=== PATIENT | female | born 1985 | race Hispanic/Latino ===

== ENCOUNTER 2021-03-08 01:05 | Inpatient (IN) | payer SELFPAY ==
[~2021-03-08] VITALS: Ht 154.9 cm; Wt 84.2 kg
[2021-03-08] VITALS (9 sets, daily range): BP systolic 72–134; BP diastolic 55–83
[2021-03-08 03:52] LABS: BASOPHILS % (AUTO) 0.3 % (0.0-5.0); LYMPHOCYTES % (AUTO) 16.7 % (21.0-51.0); MEAN CORPUSCULAR HEMOGLOBIN 57.1 pg (27.0-33.0); MEAN CORPUSCULAR HGB CONC 39.5 g/dL (32.0-36.0); MEAN CORPUSCULAR VOLUME 144.6 fL (79-99); MONOCYTES % (AUTO) 7.1 % (3.0-13.0); NEUTROPHILS % (AUTO) 70.8 % (40.0-77.0); NUCLEATED RED BLOOD CELLS 18.7 % (0.0-0.19); PLATELET COUNT (AUTO) 475 K/uL (130-400); RED BLOOD CELL COUNT(AUTO) 0.56 MIL/uL (4.00-5.50); RED CELL DISTRIBUTION WIDTH 30.9 % (11.0-15.5)
[2021-03-08 03:54] LABS: CREATININE 0.8 mg/dL (0.5-1.5); POTASSIUM 3.9 mmol/L (3.5-5.1)
[2021-03-08 03:55] LABS: HEMATOCRIT 8.1 % (36-48); WHITE BLOOD COUNT (AUTO) 34.4 K/uL (4.8-10.8)
[2021-03-08 03:57] LABS: INR 1.16 (0.85-1.15); PROTHROMBIN TIME 12.5 SEC (9.6-11.6)
[2021-03-08 03:59] LABS: BILIRUBIN,TOTAL 3.2 mg/dL (0.2-1.0); TOTAL PROTEIN, SERUM 8.8 g/dL (6.0-8.3)
[2021-03-08 04:22] LABS: BAND NEUTROPHILS % (MANUAL) 12 % (0-2); LYMPHOCYTES % (MANUAL) 13 % (22-44); MAN.DIFF COMMENT-IMPRESSION MANUAL DIFFERENTIAL; MONOCYTES % (MANUAL) 9 % (2-9); SEGMENTED NEUTROPHILS % 66 % (40-70)
[2021-03-08 04:26] LABS: B-TYPE NATRIURETIC PEPTIDE 179 pg/mL (0-100)
[2021-03-08] MEDS ORDERED: DEXAMETHASONE SOD PHOSPHATE 4 MG/ML 1ML VIAL IVP ONE (04:30)
[2021-03-08] MEDS ORDERED: ACETAMINOPHEN 325 MG TAB PO PRN ×2 (05:00)
[2021-03-08] MEDS ORDERED: ONDANSETRON 4MG INJ IV PRN (05:00)
[2021-03-08] MEDS ORDERED: DEXAMETHASONE SOD PHOSPHATE 4 MG/ML 5ML VIAL ONE (05:43)
[2021-03-08 06:01] LABS: CREATINE KINASE, TOTAL 15 U/L (21-232); MYOGLOBIN 29 ng/mL (10-92)
[2021-03-08 07:48] LABS: APPEARANCE,URINE Clear (CLEAR); BILIRUBIN,URINE Small (NEGATIVE); COLOR,URINE Dark Yellow (YELLOW); GLUCOSE, URINE (UA) Negative (NEGATIVE); KETONES,URINE Negative (NEGATIVE); LEUKOCYTE ESTERASE ,URINE Trace (NEGATIVE); NITRATE,URINE Negative (NEGATIVE); OCCULT BLOOD,URINE Large (NEGATIVE); PROTEIN,URINE Negative (NEGATIVE)
[2021-03-08 07:53] LABS: HCG,QUAL RESULT NEGATIVE (NEGATIVE)
[2021-03-08 08:09] LABS: BACTERIA,URINE Few /HPF (None Seen)
[2021-03-08] MEDS: FAMOTIDINE 20MG VIAL IV SCH ×2 (09:26→21:25)
[2021-03-09 03:23] VITALS: BP 106/49
[2021-03-09 05:18] LABS: MEAN CORPUSCULAR HEMOGLOBIN 54.7 pg (27.0-33.0); MEAN CORPUSCULAR HGB CONC 39.3 g/dL (32.0-36.0); MEAN CORPUSCULAR VOLUME 139.1 fL (79-99); NUCLEATED RED BLOOD CELLS 54.7 % (0.0-0.19); PLATELET COUNT (AUTO) 461 K/uL (130-400); RED BLOOD CELL COUNT(AUTO) 0.64 MIL/uL (4.00-5.50); RED CELL DISTRIBUTION WIDTH 30.7 % (11.0-15.5)
[2021-03-09 05:35] LABS: ALBUMIN 2.9 g/dL (3.5-5.0); BILIRUBIN,TOTAL 3.2 mg/dL (0.2-1.0); CREATININE 0.8 mg/dL (0.5-1.5); POTASSIUM 3.9 mmol/L (3.5-5.1); TOTAL PROTEIN, SERUM 8.3 g/dL (6.0-8.3)
[2021-03-09 05:39] LABS: WHITE BLOOD COUNT (AUTO) 43.2 K/uL (4.8-10.8)
[2021-03-09 05:40] LABS: HEMATOCRIT 8.9 % (36-48)
[2021-03-09 06:36] LABS: BAND NEUTROPHILS % (MANUAL) 2 % (0-2); LYMPHOCYTES % (MANUAL) 26 % (22-44); MONOCYTES % (MANUAL) 8 % (2-9); MYELOCYTES % 1 % (0-0); SEGMENTED NEUTROPHILS % 63 % (40-70)
[2021-03-09 06:37] LABS: MAN.DIFF COMMENT-IMPRESSION MANUAL DIFFERENTIAL; PLATELET MORPHOLOGY COMMENT SLIGHT INCREASED
[2021-03-09 07:51] VITALS: BP 111/65
[2021-03-09] MEDS: FAMOTIDINE 20MG VIAL IV SCH (09:00)
[2021-03-09 11:58] VITALS: BP 108/62
[2021-03-09] MEDS ORDERED: DEXAMETHASONE SOD PHOSPHATE 4 MG/ML 1ML VIAL IVP SCH (12:00)
[2021-03-09] MEDS ORDERED: COMPOUND IV MISC 1 EACH IVSOLN MISC PRN (12:30)
[2021-03-09] MEDS ORDERED: DEXAMETHASONE 10MG/ML 1ML VIAL 40 MG in 0.9%NACL 50ML 50 ML IV SCH (12:30)
[2021-03-09 16:00] VITALS: BP 120/57
== END 2021-03-09 17:20 | disposition short-term general hospital (02) | DRG 810 ==
LOC: EDH 01:05 → EDHIP 01:06 → 4CH 21:26
PROVIDERS: ADMIT Internal Medicine; ATTEND Internal Medicine
DX: D59.11 Warm autoimmune hemolytic anemia (principal); F12.90 Cannabis use, unspecified, uncomplicated; F17.210 Nicotine dependence, cigarettes, uncomplicated; D72.829 Elevated white blood cell count, unspecified; Z20.822 Contact with and (suspected) exposure to COVID-19; Z90.81 Acquired absence of spleen
CPT/HCPCS: 36415; 71045; 80053; 81001; 81025; 82550; 83874; 83880; 84484; 85025; 85027; 85610; 86850; 86860; 86870; 86880; 86900; 86901; 86902; 86905; 86906; 86971; 86978; 87040; 87088; 87635; 93005; G0378; J1100; J3490

== ENCOUNTER 2021-04-14 15:49 | Inpatient (IN) | payer OTHER ==
[~2021-04-14] VITALS: Ht 154.9 cm; Wt 81.6 kg
[2021-04-14] MEDS ORDERED: 0.9%NACL 1000ML 1,000 ML IV STA (16:20)
[2021-04-14] MEDS ORDERED: ACETAMINOPHEN 500 MG TABLET PO ONE (16:30)
[2021-04-14 16:46] LABS: BASOPHILS % (AUTO) 0.3 % (0.0-5.0); EOSINOPHILS % (AUTO) 0.2 % (0.0-8.0); HEMATOCRIT 23.4 % (36-48); LYMPHOCYTES % (AUTO) 5.9 % (21.0-51.0); MEAN CORPUSCULAR HEMOGLOBIN 31.8 pg (27.0-33.0); MEAN CORPUSCULAR HGB CONC 28.6 g/dL (32.0-36.0); MEAN CORPUSCULAR VOLUME 110.9 fL (79-99); MONOCYTES % (AUTO) 4.5 % (3.0-13.0); NEUTROPHILS % (AUTO) 86.3 % (40.0-77.0); NUCLEATED RED BLOOD CELLS 4.4 % (0.0-0.19); PLATELET COUNT (AUTO) 531 K/uL (130-400); RED BLOOD CELL COUNT(AUTO) 2.11 MIL/uL (4.00-5.50); RED CELL DISTRIBUTION WIDTH 17.2 % (11.0-15.5); WHITE BLOOD COUNT (AUTO) 29.1 K/uL (4.8-10.8)
[2021-04-14 17:02] LABS: CREATININE 0.8 mg/dL (0.5-1.5); POTASSIUM 3.7 mmol/L (3.5-5.1)
[2021-04-14 17:06] LABS: ALBUMIN 2.8 g/dL (3.5-5.0); BILIRUBIN,TOTAL 1.2 mg/dL (0.2-1.0); TOTAL PROTEIN, SERUM 7.9 g/dL (6.0-8.3)
[2021-04-14 17:45] LABS: PROTHROMBIN TIME 10.9 SEC (9.6-11.6)
[2021-04-14 18:12] LABS: APPEARANCE,URINE Cloudy (CLEAR); BILIRUBIN,URINE Negative (NEGATIVE); COLOR,URINE Yellow (YELLOW); GLUCOSE, URINE (UA) Negative (NEGATIVE); KETONES,URINE Negative (NEGATIVE); LEUKOCYTE ESTERASE ,URINE Trace (NEGATIVE); NITRATE,URINE Negative (NEGATIVE); OCCULT BLOOD,URINE Negative (NEGATIVE); PH,URINE 5.5 (5.0-8.0); PROTEIN,URINE Negative (NEGATIVE)
[2021-04-14 18:44] LABS: BACTERIA,URINE Few /HPF (None Seen); MUCUS,URINE Rare LPF (None Seen); RBC,URINE 0-1 /HPF (0-1); SQUAMOUS EPITHELIAL CELL,UR Moderate /HPF (0-2)
[2021-04-14 18:46] LABS: YEAST,URINE BUDDING Rare /HPF (None Seen)
[2021-04-14] MEDS ORDERED: DEXAMETHASONE SOD PHOSPHATE 4 MG/ML 1ML VIAL IVP SCH (19:00)
[2021-04-14] MEDS ORDERED: [UNRECOGNIZED DRUG - OTHER] IV ONE (19:30)
[2021-04-14] MEDS ORDERED: ACETAMINOPHEN 325 MG TAB PO PRN (19:30)
[2021-04-14] MEDS ORDERED: DEXAMETHASONE IV ONE (19:30)
[2021-04-14] MEDS ORDERED: DEXAMETHASONE SOD PHOSPHATE 10MG/ML 1ML VIAL ONE (20:46)
[2021-04-14] MEDS ORDERED: 0.9%NACL 50ML 50 ML IV ONE (20:47)
[2021-04-14] MEDS: FAMOTIDINE 20MG TAB PO SCH (21:03)
[2021-04-14] MEDS: ENOXAPARIN SODIUM 100 MG/1 ML SQ SCH (21:04)
[2021-04-14] MEDS ORDERED: FOLIC ACID PO (22:17)
[2021-04-14] MEDS ORDERED: PRED10TA23 PO (22:17)
[2021-04-15 03:05] VITALS: BP 104/64
[2021-04-15 05:16] LABS: BASOPHILS % (AUTO) 0.1 % (0.0-5.0); LYMPHOCYTES % (AUTO) 7.6 % (21.0-51.0); MEAN CORPUSCULAR VOLUME 114.4 fL (79-99); MONOCYTES % (AUTO) 2.2 % (3.0-13.0); NEUTROPHILS % (AUTO) 88.3 % (40.0-77.0); PLATELET COUNT (AUTO) 519 K/uL (130-400); RED BLOOD CELL COUNT(AUTO) 1.81 MIL/uL (4.00-5.50); RED CELL DISTRIBUTION WIDTH 17.2 % (11.0-15.5)
[2021-04-15 05:19] LABS: HEMATOCRIT 20.7 % (36-48)
[2021-04-15 05:35] LABS: CREATININE 0.7 mg/dL (0.5-1.5); MAGNESIUM 2.4 mg/dL (1.80-2.40); PHOSPHORUS 3.5 mg/dL (2.5-4.9); POTASSIUM 3.8 mmol/L (3.5-5.1)
[2021-04-15 07:30] VITALS: BP 110/54
[2021-04-15] MEDS: FAMOTIDINE 20MG TAB PO SCH ×2 (10:16→20:07)
[2021-04-15] MEDS: ENOXAPARIN SODIUM 100 MG/1 ML SQ SCH ×2 (10:16→20:09)
[2021-04-15 11:00] VITALS: BP 140/82
[2021-04-15] MEDS ORDERED: DEXAMETHASONE 10MG/ML 1ML VIAL 40 MG in 0.9%NACL 50ML 50 ML IV SCH ×4 (11:00)
[2021-04-15 16:00] VITALS: BP 119/51
[2021-04-15 20:40] VITALS: BP 114/59
[2021-04-15 23:55] VITALS: BP 118/63
[2021-04-16 03:57] VITALS: BP 97/57
[2021-04-16 07:30] VITALS: BP 100/60
[2021-04-16 08:55] LABS: HEMATOCRIT 22.1 % (36-48); MEAN CORPUSCULAR HGB CONC 27.6 g/dL (32.0-36.0); MEAN CORPUSCULAR VOLUME 112.2 fL (79-99); NUCLEATED RED BLOOD CELLS 2.8 % (0.0-0.19); PLATELET COUNT (AUTO) 595 K/uL (130-400); RED BLOOD CELL COUNT(AUTO) 1.97 MIL/uL (4.00-5.50)
[2021-04-16] MEDS ORDERED: DEXAMETHASONE 10MG/ML 1ML VIAL 40 MG in 0.9%NACL 50ML 50 ML IV SCH (09:00)
[2021-04-16 09:09] LABS: WHITE BLOOD COUNT (AUTO) 36.4 K/uL (4.8-10.8)
[2021-04-16 09:20] LABS: ALBUMIN 2.6 g/dL (3.5-5.0); BILIRUBIN,TOTAL 0.5 mg/dL (0.2-1.0); CREATININE 0.8 mg/dL (0.5-1.5); POTASSIUM 3.6 mmol/L (3.5-5.1); TOTAL PROTEIN, SERUM 7.5 g/dL (6.0-8.3)
[2021-04-16 09:27] LABS: LYMPHOCYTES % (MANUAL) 7 % (22-44); MAN.DIFF COMMENT-IMPRESSION MANUAL DIFFERENTIAL; MONOCYTES % (MANUAL) 3 % (2-9); PLATELET MORPHOLOGY COMMENT MARKED INCREASE; SEGMENTED NEUTROPHILS % 90 % (40-70)
[2021-04-16] MEDS: FAMOTIDINE 20MG TAB PO SCH ×2 (09:49→20:57)
[2021-04-16] MEDS: ENOXAPARIN SODIUM 100 MG/1 ML SQ SCH ×2 (09:50→20:57)
[2021-04-16 11:00] VITALS: BP 100/59
[2021-04-16 16:00] VITALS: BP 117/45
[2021-04-16 23:10] VITALS: BP 104/47
[2021-04-17 03:27] VITALS: BP 114/61
[2021-04-17 03:50] LABS: HEMATOCRIT 22.8 % (36-48); MEAN CORPUSCULAR HEMOGLOBIN 31.7 pg (27.0-33.0); MEAN CORPUSCULAR HGB CONC 28.1 g/dL (32.0-36.0); MEAN CORPUSCULAR VOLUME 112.9 fL (79-99); NUCLEATED RED BLOOD CELLS 4.1 % (0.0-0.19); RED BLOOD CELL COUNT(AUTO) 2.02 MIL/uL (4.00-5.50); RED CELL DISTRIBUTION WIDTH 17.7 % (11.0-15.5)
[2021-04-17 03:56] LABS: WHITE BLOOD COUNT (AUTO) 38.5 K/uL (4.8-10.8)
[2021-04-17 04:07] LABS: ALBUMIN 2.6 g/dL (3.5-5.0); BILIRUBIN,TOTAL 0.5 mg/dL (0.2-1.0); CREATININE 0.7 mg/dL (0.5-1.5); POTASSIUM 3.9 mmol/L (3.5-5.1); TOTAL PROTEIN, SERUM 7.5 g/dL (6.0-8.3)
[2021-04-17 07:30] VITALS: BP 101/62
[2021-04-17 08:55] LABS: % IRON SATURATION 50.9 % (22-44)
[2021-04-17] MEDS ORDERED: [UNRECOGNIZED DRUG - OTHER] PO SCH (09:00)
[2021-04-17] MEDS: ENOXAPARIN SODIUM 100 MG/1 ML SQ SCH (09:00)
[2021-04-17] MEDS: DEXAMETHASONE 10MG/ML 1ML VIAL 40 MG in 0.9%NACL 50ML 50 ML IV SCH (09:29)
[2021-04-17] MEDS: FAMOTIDINE 20MG TAB PO SCH ×2 (09:30→20:22)
[2021-04-17] MEDS: [UNRECOGNIZED DRUG - OTHER] PO SCH ×2 (09:45→20:23)
[2021-04-17 11:00] VITALS: BP 124/70
[2021-04-17 16:00] VITALS: BP 106/55
[2021-04-17 20:25] VITALS: BP 131/58
[2021-04-17 23:17] VITALS: BP 115/72
[2021-04-18 03:46] LABS: HEMATOCRIT 24.9 % (36-48); MEAN CORPUSCULAR HEMOGLOBIN 31.5 pg (27.0-33.0); MEAN CORPUSCULAR HGB CONC 28.1 g/dL (32.0-36.0); MEAN CORPUSCULAR VOLUME 112.2 fL (79-99); NUCLEATED RED BLOOD CELLS 6.3 % (0.0-0.19); PLATELET COUNT (AUTO) 530 K/uL (130-400); RED BLOOD CELL COUNT(AUTO) 2.22 MIL/uL (4.00-5.50); RED CELL DISTRIBUTION WIDTH 18.7 % (11.0-15.5)
[2021-04-18 03:47] VITALS: BP 103/47
[2021-04-18 03:48] LABS: WHITE BLOOD COUNT (AUTO) 31.3 K/uL (4.8-10.8)
[2021-04-18 03:56] LABS: CREATININE 0.6 mg/dL (0.5-1.5); POTASSIUM 4.1 mmol/L (3.5-5.1)
[2021-04-18 04:09] LABS: LYMPHOCYTES % (MANUAL) 12 % (22-44); MONOCYTES % (MANUAL) 4 % (2-9); REACTIVE LYMPHOCYTES 1 % (0-0); SEGMENTED NEUTROPHILS % 83 % (40-70)
[2021-04-18 04:10] LABS: MAN.DIFF COMMENT-IMPRESSION MANUAL DIFFERENTIAL
[2021-04-18 04:11] LABS: PLATELET MORPHOLOGY COMMENT INCREASED
[2021-04-18 07:39] VITALS: BP 108/65
[2021-04-18 08:07] LABS: HEMATOCRIT 26.3 % (36-48)
[2021-04-18] MEDS: FAMOTIDINE 20MG TAB PO SCH (08:59)
[2021-04-18] MEDS: [UNRECOGNIZED DRUG - OTHER] PO SCH (08:59)
[2021-04-18] MEDS ORDERED: PRED10TA3 PO (09:21)
[2021-04-18] MEDS: DEXAMETHASONE 10MG/ML 1ML VIAL 40 MG in 0.9%NACL 50ML 50 ML IV SCH (09:27)
== END 2021-04-18 12:40 | disposition home or self-care (01) | DRG 809 ==
LOC: EDH 15:49 → EDHIP 15:50 → 4AH 04-15 03:00
PROVIDERS: ADMIT Internal Medicine; ATTEND Internal Medicine
DX: D59.10 Autoimmune hemolytic anemia, unspecified (principal); E44.0 Moderate protein-calorie malnutrition; I82.431 Acute embolism and thrombosis of right popliteal vein; I82.411 Acute embolism and thrombosis of right femoral vein; Z20.822 Contact with and (suspected) exposure to COVID-19; F12.90 Cannabis use, unspecified, uncomplicated; D72.829 Elevated white blood cell count, unspecified; T38.0X5A Adverse effect of glucocorticoids and synthetic analogues, initial encounter; Z68.34 Body mass index [BMI] 34.0-34.9, adult; Y92.89 Other specified places as the place of occurrence of the external cause; Z79.01 Long term (current) use of anticoagulants; Z87.891 Personal history of nicotine dependence; Z90.81 Acquired absence of spleen
CPT/HCPCS: 36415; 80048; 80053; 81001; 82607; 82746; 83540; 83550; 83735; 84100; 85014; 85018; 85025; 85027; 85378; 85610; 86850; 86870; 86880; 86900; 86901; 86971; 86978; 87635; 93005; 93970; G0378; J1100; J1650

== ENCOUNTER 2022-09-28 11:35 | Inpatient (IN) | payer OTHER ==
[~2022-09-28] VITALS: Ht 154.9 cm; Wt 76.7 kg
[~2022-09-28 11:35] MED LIST: FOLIC ACID PO; PRED10TA3 PO
[2022-09-28 12:15] LABS: BASOPHILS % (AUTO) 0.3 % (0.0-5.0); EOSINOPHILS % (AUTO) 0.6 % (0.0-8.0); HEMATOCRIT 33.8 % (36-48); LYMPHOCYTES % (AUTO) 19.6 % (21.0-51.0); MEAN CORPUSCULAR HEMOGLOBIN 27.6 pg (27.0-33.0); MEAN CORPUSCULAR VOLUME 86.4 fL (79-99); PLATELET COUNT (AUTO) 327 K/uL (130-400); RED BLOOD CELL COUNT(AUTO) 3.91 MIL/uL (4.00-5.50); RED CELL DISTRIBUTION WIDTH 15.7 % (11.0-15.5); WHITE BLOOD COUNT (AUTO) 11.1 K/uL (4.8-10.8)
[2022-09-28 12:19] LABS: APPEARANCE,URINE CLEAR (CLEAR); BILIRUBIN,URINE NEGATIVE (NEGATIVE); COLOR,URINE LIGHT-YELLOW (YELLOW); GLUCOSE, URINE (UA) NEGATIVE (NEGATIVE); KETONES,URINE NEGATIVE (NEGATIVE); LEUKOCYTE ESTERASE ,URINE NEGATIVE Leu/uL (NEGATIVE); NITRATE,URINE NEGATIVE (NEGATIVE); OCCULT BLOOD,URINE LARGE (NEGATIVE); PH,URINE 6.5 (5.0-8.0); PROTEIN,URINE 600 mg/dL (NEGATIVE); UROBILINOGEN,URINE 0.2 mg/dL (0.2-1.0)
[2022-09-28 12:21] LABS: HCG,QUALITATIVE URINE NEGATIVE (NEGATIVE)
[2022-09-28 12:24] LABS: AMPHET/METH SCREEN,URINE NEGATIVE (NEGATIVE); BARBITURATE SCREEN, URINE NEGATIVE (NEGATIVE); BENZODIAZEPINES SCREEN,URINE NEGATIVE (NEGATIVE); CANNABINOID SCREEN,URINE NEGATIVE (NEGATIVE); COCAINE SCREEN,URINE NEGATIVE (NEGATIVE); OPIATE SCREEN,URINE NEGATIVE (NEGATIVE); PHENCYCLIDINE SCREEN,URINE NEGATIVE (NEGATIVE)
[2022-09-28 12:25] LABS: CREATININE 1.1 mg/dL (0.5-1.5); POTASSIUM 3.9 mmol/L (3.5-5.1)
[2022-09-28] MEDS ORDERED: LOSA50TA64 PO (12:27)
[2022-09-28] MEDS ORDERED: METO-391 PO (12:27)
[2022-09-28] MEDS ORDERED: HYDR200T4 PO (12:27)
[2022-09-28] MEDS ORDERED: AMLO5TAB5 PO (12:27)
[2022-09-28 12:29] LABS: ALBUMIN 2.1 g/dL (3.5-5.0); TOTAL PROTEIN, SERUM 6.8 g/dL (6.0-8.3)
[2022-09-28 12:32] LABS: RBC,URINE 26-50 /HPF (0-1); WBC,URINE 26-50 /HPF (0-1)
[2022-09-28 12:34] LABS: BACTERIA,URINE Few /HPF (None Seen); SQUAMOUS EPITHELIAL CELL,UR Rare /HPF (0-2)
[2022-09-28 12:35] LABS: MUCUS,URINE Rare LPF (None Seen)
[2022-09-28] MEDS ORDERED: 0.9% NACL 500ML IV.SOLN 500 ML IV ONE (13:00)
[2022-09-28] MEDS ORDERED: SOLU-MEDROL 125MG VIAL IVP ONE (13:00)
[2022-09-28] MEDS ORDERED: HYDRALAZINE 20MG/ML VIAL IV ONE (13:00)
[2022-09-28] MEDS ORDERED: HYDROMORPHONE 0.5 MG SYG (0.5MG/0.5ML) IVP PRN ×2 (15:00)
[2022-09-28] MEDS ORDERED: CLOPIDOGREL 75MG TAB PO ONE (15:00)
[2022-09-28] MEDS ORDERED: ASPIRIN 325MG TAB PO ONE (15:00)
[2022-09-28] MEDS ORDERED: HYDRALAZINE 20MG/ML VIAL IV PRN (15:00)
[2022-09-28] MEDS ORDERED: ACETAMINOPHEN 325 MG TAB PO PRN (15:00)
[2022-09-28] MEDS: METOPROLOL TARTRATE 25 MG TAB PO SCH ×2 (16:00→21:27)
[2022-09-28] MEDS: NIFEDIPINE 10 MG CAP PO SCH ×2 (16:01→21:27)
[2022-09-28] MEDS: NITROGLYCERIN 1GM OINT 1 INCH/1GM TD SCH (16:04)
[2022-09-28 16:30] VITALS: BP 164/91
[2022-09-28 19:46] VITALS: BP 146/86
[2022-09-28] MEDS ORDERED: METOPROLOL TARTRATE 25 MG TAB PO SCH (21:00)
[2022-09-28] MEDS: LOSARTAN 50 MG TABLET PO SCH (21:27)
[2022-09-28] MEDS: FAMOTIDINE 20MG TAB PO SCH (21:27)
[2022-09-28 23:48] VITALS: BP 141/83
[2022-09-29] MEDS: NITROGLYCERIN 1GM OINT 1 INCH/1GM TD SCH ×4 (00:37→23:44)
[2022-09-29 04:04] VITALS: BP 142/80
[2022-09-29 04:53] LABS: RETICULOCYTE % (AUTO) 1.36 % (0.42-2.23)
[2022-09-29 05:37] LABS: % IRON SATURATION 32.5 % (22-44)
[2022-09-29 05:49] LABS: CREATINE KINASE, TOTAL 13 U/L (21-232); FERRITIN 702 ng/mL (15-150); MYOGLOBIN 46 ng/mL (10-92)
[2022-09-29 08:00] VITALS: BP 130/81
[2022-09-29] MEDS: NIFEDIPINE 10 MG CAP PO SCH ×3 (08:36→19:59)
[2022-09-29] MEDS: CLOPIDOGREL 75MG TAB PO SCH (08:36)
[2022-09-29] MEDS: FAMOTIDINE 20MG TAB PO SCH ×2 (08:36→19:59)
[2022-09-29] MEDS: ENOXAPARIN SODIUM 40 MG/0.4 ML SYRINGE SQ SCH (08:36)
[2022-09-29] MEDS: LOSARTAN 50 MG TABLET PO SCH ×2 (08:36→19:59)
[2022-09-29] MEDS: ASPIRIN 81MG CHEW TAB PO SCH (08:36)
[2022-09-29] MEDS: METOPROLOL TARTRATE 25 MG TAB PO SCH ×3 (08:37→19:59)
[2022-09-29 12:09] VITALS: BP 139/76
[2022-09-29 16:32] VITALS: BP 125/84
[2022-09-29 20:02] VITALS: BP 143/71
[2022-09-29 23:31] VITALS: BP 141/81
[2022-09-30 03:54] VITALS: BP 138/84
[2022-09-30] MEDS: NITROGLYCERIN 1GM OINT 1 INCH/1GM TD SCH ×3 (07:08→16:40)
[2022-09-30 07:59] VITALS: BP 151/88
[2022-09-30] MEDS ORDERED: IRON SUCROSE COMPLEX 500 MG in 0.9%NACL 50ML 50 ML IV SCH (08:00)
[2022-09-30] MEDS ORDERED: EPOETIN ALFA-EPBX (NON-ESRD) 10,000 UNIT/ML VIAL SQ SCH (08:00)
[2022-09-30] MEDS ORDERED: CEFTRIAXONE 2GM VIAL IVPB ONE (08:00)
[2022-09-30 08:31] LABS: BASOPHILS % (AUTO) 0.2 % (0.0-5.0); HEMATOCRIT 28.8 % (36-48); MEAN CORPUSCULAR HGB CONC 31.9 g/dL (32.0-36.0); MEAN CORPUSCULAR VOLUME 87.8 fL (79-99); MONOCYTES % (AUTO) 6.2 % (3.0-13.0); NEUTROPHILS % (AUTO) 60.3 % (40.0-77.0); PLATELET COUNT (AUTO) 460 K/uL (130-400); RED BLOOD CELL COUNT(AUTO) 3.28 MIL/uL (4.00-5.50); RED CELL DISTRIBUTION WIDTH 16.4 % (11.0-15.5); WHITE BLOOD COUNT (AUTO) 14.2 K/uL (4.8-10.8)
[2022-09-30] MEDS: FAMOTIDINE 20MG TAB PO SCH ×2 (08:32→21:19)
[2022-09-30] MEDS: CLOPIDOGREL 75MG TAB PO SCH (08:32)
[2022-09-30] MEDS: ASPIRIN 81MG CHEW TAB PO SCH (08:32)
[2022-09-30] MEDS: NIFEDIPINE ER 30 MG TAB PO SCH (08:33)
[2022-09-30] MEDS: HYDROXYCHLOROQUINE SULFATE 200 MG TAB PO SCH ×2 (08:33→21:21)
[2022-09-30] MEDS: LOSARTAN 50 MG TABLET PO SCH ×2 (08:33→21:20)
[2022-09-30] MEDS: ENOXAPARIN SODIUM 40 MG/0.4 ML SYRINGE SQ SCH (08:34)
[2022-09-30 08:40] LABS: CARBON DIOXIDE 23 mmol/L (21-32); CHLORIDE 111 mmol/L (101-111); CREATININE 0.9 mg/dL (0.5-1.5); GLOMERULAR FILTR. RATE CALC 86 mL/min (>90); GLUCOSE,RANDOM 78 mg/dL (70-105); POTASSIUM 3.6 mmol/L (3.5-5.1); SODIUM SERUM 139 mmol/L (136-145); UREA NITROGEN, BLOOD 33 mg/dL (7-18)
[2022-09-30 09:00] LABS: MYOGLOBIN 32 ng/mL (10-92)
[2022-09-30] MEDS ORDERED: METOPROLOL TARTRATE 50 MG TAB PO SCH (09:00)
[2022-09-30 09:15] LABS: CREATINE KINASE, TOTAL < 7 U/L (21-232)
[2022-09-30 11:20] VITALS: BP 147/107
[2022-09-30 16:00] VITALS: BP 159/104
[2022-09-30] MEDS ORDERED: ISOSORBIDE MONO 30MG SR TAB PO SCH (18:00)
[2022-09-30] MEDS: HYDRALAZINE HCL 10 MG TABLET PO SCH ×2 (18:34→21:20)
[2022-09-30 18:58] LABS: APPEARANCE,URINE CLOUDY (CLEAR); BILIRUBIN,URINE NEGATIVE (NEGATIVE); COLOR,URINE LIGHT-YELLOW (YELLOW); GLUCOSE, URINE (UA) NEGATIVE (NEGATIVE); KETONES,URINE NEGATIVE (NEGATIVE); LEUKOCYTE ESTERASE ,URINE 75 Leu/uL (NEGATIVE); NITRATE,URINE NEGATIVE (NEGATIVE); OCCULT BLOOD,URINE LARGE (NEGATIVE); PH,URINE 6.5 (5.0-8.0); PROTEIN,URINE 300 mg/dL (NEGATIVE); UROBILINOGEN,URINE 0.2 mg/dL (0.2-1.0)
[2022-09-30 19:04] LABS: BACTERIA,URINE FEW /HPF (None Seen); MUCUS,URINE RARE LPF (None Seen); OTHER CASTS, URINE 1 /LPF (None Seen); RBC,URINE 51-100 /HPF (0-1); SQUAMOUS EPITHELIAL CELL,UR FEW /HPF (0-2); WBC,URINE 26-50 /HPF (0-1); YEAST,URINE BUDDING RARE /HPF (None Seen)
[2022-09-30 20:11] VITALS: BP 159/79
[2022-09-30] MEDS: METOPROLOL TARTRATE 25 MG TAB PO SCH (21:20)
[2022-09-30 22:04] LABS: PROTEIN,URINE RANDOM 694.9 mg/dL (0-11.9)
[2022-10-01 00:15] VITALS: BP 121/69
[2022-10-01] MEDS: NITROGLYCERIN 1GM OINT 1 INCH/1GM TD SCH ×3 (01:14→16:08)
[2022-10-01 04:20] LABS: BASOPHILS % (AUTO) 0.4 % (0.0-5.0); EOSINOPHILS % (AUTO) 1.1 % (0.0-8.0); HEMATOCRIT 27.2 % (36-48); LYMPHOCYTES % (AUTO) 22.5 % (21.0-51.0); MEAN CORPUSCULAR HEMOGLOBIN 28.1 pg (27.0-33.0); MEAN CORPUSCULAR HGB CONC 31.3 g/dL (32.0-36.0); MEAN CORPUSCULAR VOLUME 90.1 fL (79-99); NEUTROPHILS % (AUTO) 67.5 % (40.0-77.0); NUCLEATED RED BLOOD CELLS 0.4 % (0.0-0.19); PLATELET COUNT (AUTO) 432 K/uL (130-400); RED BLOOD CELL COUNT(AUTO) 3.02 MIL/uL (4.00-5.50); RED CELL DISTRIBUTION WIDTH 16.7 % (11.0-15.5); WHITE BLOOD COUNT (AUTO) 14.1 K/uL (4.8-10.8)
[2022-10-01 04:44] LABS: ALBUMIN 1.5 g/dL (3.5-5.0); CREATININE 0.9 mg/dL (0.5-1.5); MAGNESIUM 1.5 mg/dL (1.80-2.40); PHOSPHORUS 4.8 mg/dL (2.5-4.9); TOTAL PROTEIN, SERUM 5.1 g/dL (6.0-8.3)
[2022-10-01 05:02] VITALS: BP 143/86
[2022-10-01 05:54] LABS: ERYTHROCYTE SEDIMENTATION RATE 105 MM/HR (0-20)
[2022-10-01 07:06] VITALS: BP 146/81
[2022-10-01] MEDS: HYDROXYCHLOROQUINE SULFATE 200 MG TAB PO SCH ×2 (08:33→21:54)
[2022-10-01] MEDS: FAMOTIDINE 20MG TAB PO SCH ×2 (08:33→21:54)
[2022-10-01] MEDS: HYDRALAZINE HCL 10 MG TABLET PO SCH ×3 (08:34→21:54)
[2022-10-01] MEDS: NIFEDIPINE ER 30 MG TAB PO SCH (08:34)
[2022-10-01] MEDS: ASPIRIN 81MG CHEW TAB PO SCH (08:34)
[2022-10-01] MEDS: LOSARTAN 50 MG TABLET PO SCH ×2 (08:34→21:54)
[2022-10-01] MEDS: ISOSORBIDE MONO 30MG SR TAB PO SCH (08:35)
[2022-10-01] MEDS: METOPROLOL TARTRATE 25 MG TAB PO SCH ×2 (08:35→21:54)
[2022-10-01] MEDS: ENOXAPARIN SODIUM 40 MG/0.4 ML SYRINGE SQ SCH (08:36)
[2022-10-01] MEDS ORDERED: NIFEDIPINE ER 30 MG TAB PO SCH (10:00)
[2022-10-01 12:49] VITALS: BP 133/81
[2022-10-01 16:26] VITALS: BP 147/88
[2022-10-01 19:42] VITALS: BP 151/77
[2022-10-01] MEDS: MAGNESIUM 2GM PREMIX 50ML 50 ML IV PRN (22:43)
[2022-10-02 00:39] VITALS: BP_SYST 111; BP_SYST 142; BP_DIAS 72; BP_DIAS 77
[2022-10-02] MEDS: NITROGLYCERIN 1GM OINT 1 INCH/1GM TD SCH ×3 (01:13→15:52)
[2022-10-02 03:44] LABS: BASOPHILS % (AUTO) 0.3 % (0.0-5.0); EOSINOPHILS % (AUTO) 1.8 % (0.0-8.0); HEMATOCRIT 26.6 % (36-48); LYMPHOCYTES % (AUTO) 14.9 % (21.0-51.0); MEAN CORPUSCULAR HEMOGLOBIN 27.7 pg (27.0-33.0); MEAN CORPUSCULAR VOLUME 86.6 fL (79-99); MONOCYTES % (AUTO) 5.3 % (3.0-13.0); NEUTROPHILS % (AUTO) 75.5 % (40.0-77.0); NUCLEATED RED BLOOD CELLS 0.2 % (0.0-0.19); PLATELET COUNT (AUTO) 471 K/uL (130-400); RED BLOOD CELL COUNT(AUTO) 3.07 MIL/uL (4.00-5.50); RED CELL DISTRIBUTION WIDTH 16.5 % (11.0-15.5); WHITE BLOOD COUNT (AUTO) 14.8 K/uL (4.8-10.8)
[2022-10-02 04:04] LABS: ALBUMIN 1.4 g/dL (3.5-5.0); CREATININE 0.9 mg/dL (0.5-1.5); MAGNESIUM 1.9 mg/dL (1.80-2.40); POTASSIUM 3.7 mmol/L (3.5-5.1); TOTAL PROTEIN, SERUM 5.1 g/dL (6.0-8.3)
[2022-10-02 04:46] VITALS: BP 137/71
[2022-10-02] MEDS: MAGNESIUM 2GM PREMIX 50ML 50 ML IV PRN (05:40)
[2022-10-02 08:16] VITALS: BP 139/89
[2022-10-02] MEDS: FAMOTIDINE 20MG TAB PO SCH ×2 (08:36→20:43)
[2022-10-02] MEDS: NIFEDIPINE ER 30 MG TAB PO SCH (08:36)
[2022-10-02] MEDS: ISOSORBIDE MONO 30MG SR TAB PO SCH (08:37)
[2022-10-02] MEDS: METOPROLOL TARTRATE 25 MG TAB PO SCH ×2 (08:37→20:43)
[2022-10-02] MEDS: HYDRALAZINE HCL 10 MG TABLET PO SCH ×3 (08:37→20:43)
[2022-10-02] MEDS: ASPIRIN 81MG CHEW TAB PO SCH (08:37)
[2022-10-02] MEDS: HYDROXYCHLOROQUINE SULFATE 200 MG TAB PO SCH ×2 (08:37→20:43)
[2022-10-02] MEDS: LOSARTAN 50 MG TABLET PO SCH ×2 (08:37→20:43)
[2022-10-02 11:58] VITALS: BP 133/92
[2022-10-02 14:29] LABS: COLLECTION PERIOD,URINE 24 HR
[2022-10-02 14:30] LABS: TOTAL VOLUME 24HRS,URINE 1700 mL; TPROTEIN TIMED,URINE 678 mg/dL; TPROTEIN U,24HR CALC 11526 mg/24HR (0-165)
[2022-10-02 16:09] VITALS: BP 148/82
[2022-10-02 19:03] VITALS: BP 146/82
[2022-10-03] VITALS (9 sets, daily range): BP systolic 73–182; BP diastolic 64–97
[2022-10-03] MEDS: NITROGLYCERIN 1GM OINT 1 INCH/1GM TD SCH ×4 (00:42→23:40)
[2022-10-03] MEDS: ASPIRIN 81MG CHEW TAB PO SCH (08:48)
[2022-10-03] MEDS: LOSARTAN 50 MG TABLET PO SCH ×2 (08:48→20:45)
[2022-10-03] MEDS: METOPROLOL TARTRATE 25 MG TAB PO SCH ×2 (08:49→20:45)
[2022-10-03] MEDS: FAMOTIDINE 20MG TAB PO SCH ×2 (08:49→20:45)
[2022-10-03] MEDS: NIFEDIPINE ER 30 MG TAB PO SCH (08:49)
[2022-10-03] MEDS: HYDRALAZINE HCL 10 MG TABLET PO SCH ×3 (08:50→20:45)
[2022-10-03] MEDS: HYDROXYCHLOROQUINE SULFATE 200 MG TAB PO SCH ×2 (08:50→20:45)
[2022-10-03] MEDS: ISOSORBIDE MONO 30MG SR TAB PO SCH (08:50)
[2022-10-03] MEDS: EPOETIN ALFA-EPBX (NON-ESRD) 10,000 UNIT/ML VIAL SQ SCH (20:44)
[2022-10-04 04:18] VITALS: BP 126/80
[2022-10-04] MEDS: ACETAMINOPHEN 325 MG TAB PO PRN (05:57)
[2022-10-04 06:31] LABS: HEMATOCRIT 26.4 % (36-48); MEAN CORPUSCULAR HEMOGLOBIN 27.4 pg (27.0-33.0); MEAN CORPUSCULAR HGB CONC 31.4 g/dL (32.0-36.0); MEAN CORPUSCULAR VOLUME 87.1 fL (79-99); RED BLOOD CELL COUNT(AUTO) 3.03 MIL/uL (4.00-5.50); RED CELL DISTRIBUTION WIDTH 17.4 % (11.0-15.5); WHITE BLOOD COUNT (AUTO) 12.3 K/uL (4.8-10.8)
[2022-10-04 06:43] LABS: ALBUMIN 1.4 g/dL (3.5-5.0); CREATININE 1.1 mg/dL (0.5-1.5); MAGNESIUM 1.9 mg/dL (1.80-2.40); POTASSIUM 3.7 mmol/L (3.5-5.1); TOTAL PROTEIN, SERUM 5.2 g/dL (6.0-8.3)
[2022-10-04 08:00] VITALS: BP 123/73
[2022-10-04] MEDS: FAMOTIDINE 20MG TAB PO SCH ×2 (08:57→20:10)
[2022-10-04] MEDS: LOSARTAN 50 MG TABLET PO SCH ×2 (08:57→20:10)
[2022-10-04] MEDS: NITROGLYCERIN 1GM OINT 1 INCH/1GM TD SCH ×2 (08:57→17:14)
[2022-10-04] MEDS: METOPROLOL TARTRATE 25 MG TAB PO SCH ×2 (08:57→20:10)
[2022-10-04] MEDS: ASPIRIN 81MG CHEW TAB PO SCH (08:57)
[2022-10-04] MEDS: NIFEDIPINE ER 30 MG TAB PO SCH (08:57)
[2022-10-04] MEDS: HYDRALAZINE HCL 10 MG TABLET PO SCH ×3 (08:57→20:10)
[2022-10-04] MEDS: HYDROXYCHLOROQUINE SULFATE 200 MG TAB PO SCH ×2 (08:58→20:10)
[2022-10-04] MEDS: ISOSORBIDE MONO 30MG SR TAB PO SCH (08:58)
[2022-10-04 11:00] VITALS: BP 138/82
[2022-10-04 16:00] VITALS: BP 141/76
[2022-10-04] MEDS: EPOETIN ALFA-EPBX (NON-ESRD) 10,000 UNIT/ML VIAL SQ SCH (20:13)
[2022-10-04 20:42] VITALS: BP 153/89
[2022-10-04 23:27] VITALS: BP 137/85
[2022-10-05] MEDS: NITROGLYCERIN 1GM OINT 1 INCH/1GM TD SCH ×4 (00:05→23:43)
[2022-10-05 03:55] VITALS: BP 123/85
[2022-10-05 05:40] LABS: MEAN CORPUSCULAR HEMOGLOBIN 27.7 pg (27.0-33.0); MEAN CORPUSCULAR HGB CONC 31.5 g/dL (32.0-36.0); MEAN CORPUSCULAR VOLUME 87.8 fL (79-99); RED BLOOD CELL COUNT(AUTO) 2.96 MIL/uL (4.00-5.50); WHITE BLOOD COUNT (AUTO) 11.3 K/uL (4.8-10.8)
[2022-10-05 05:56] LABS: INR 0.93 (0.85-1.15); PROTHROMBIN TIME 10.1 SEC (9.6-11.6)
[2022-10-05 05:58] LABS: ALBUMIN 1.4 g/dL (3.5-5.0); PARTIAL THROMBOPLASTIN TIME 26.9 SEC (26.3-35.5); POTASSIUM 3.7 mmol/L (3.5-5.1); TOTAL PROTEIN, SERUM 5.5 g/dL (6.0-8.3)
[2022-10-05 08:00] VITALS: BP 129/89
[2022-10-05] MEDS: FAMOTIDINE 20MG TAB PO SCH ×2 (09:50→20:15)
[2022-10-05] MEDS: HYDROXYCHLOROQUINE SULFATE 200 MG TAB PO SCH ×2 (09:50→20:15)
[2022-10-05] MEDS: METOPROLOL TARTRATE 25 MG TAB PO SCH ×2 (09:50→20:15)
[2022-10-05] MEDS: ISOSORBIDE MONO 30MG SR TAB PO SCH (09:50)
[2022-10-05] MEDS: NIFEDIPINE ER 30 MG TAB PO SCH (09:50)
[2022-10-05] MEDS: LOSARTAN 50 MG TABLET PO SCH ×2 (09:51→20:15)
[2022-10-05] MEDS: HYDRALAZINE HCL 10 MG TABLET PO SCH ×3 (09:51→20:15)
[2022-10-05] MEDS: ASPIRIN 81MG CHEW TAB PO SCH (09:51)
[2022-10-05 11:50] VITALS: BP 146/92
[2022-10-05 16:00] VITALS: BP 142/85
[2022-10-05 18:50] LABS: APPEARANCE,URINE CLOUDY (CLEAR); BILIRUBIN,URINE NEGATIVE (NEGATIVE); COLOR,URINE YELLOW (YELLOW); GLUCOSE, URINE (UA) NEGATIVE (NEGATIVE); KETONES,URINE NEGATIVE (NEGATIVE); LEUKOCYTE ESTERASE ,URINE 500 Leu/uL (NEGATIVE); NITRATE,URINE NEGATIVE (NEGATIVE); OCCULT BLOOD,URINE LARGE (NEGATIVE); PH,URINE 6.5 (5.0-8.0); PROTEIN,URINE 600 mg/dL (NEGATIVE); UROBILINOGEN,URINE 0.2 mg/dL (0.2-1.0)
[2022-10-05 19:02] LABS: BACTERIA,URINE MOD /HPF (None Seen); MUCUS,URINE FEW LPF (None Seen); RBC,URINE >100 /HPF (0-1); SQUAMOUS EPITHELIAL CELL,UR MOD /HPF (0-2); WBC,URINE 26-50 /HPF (0-1); YEAST,URINE BUDDING MOD /HPF (None Seen)
[2022-10-05 20:00] VITALS: BP_SYST 140; BP_SYST 143; BP_DIAS 62; BP_DIAS 82
[2022-10-05] MEDS: EPOETIN ALFA-EPBX (NON-ESRD) 10,000 UNIT/ML VIAL SQ SCH (20:14)
[2022-10-06] VITALS (16 sets, daily range): BP systolic 122–151; BP diastolic 75–100
[2022-10-06 07:16] LABS: BASOPHILS % (AUTO) 0.3 % (0.0-5.0); EOSINOPHILS % (AUTO) 1.8 % (0.0-8.0); HEMATOCRIT 27.8 % (36-48); LYMPHOCYTES % (AUTO) 13.9 % (21.0-51.0); MEAN CORPUSCULAR HEMOGLOBIN 27.2 pg (27.0-33.0); MEAN CORPUSCULAR HGB CONC 31.7 g/dL (32.0-36.0); MEAN CORPUSCULAR VOLUME 86.1 fL (79-99); MONOCYTES % (AUTO) 5.6 % (3.0-13.0); NUCLEATED RED BLOOD CELLS 0.2 % (0.0-0.19); PLATELET COUNT (AUTO) 572 K/uL (130-400); RED BLOOD CELL COUNT(AUTO) 3.23 MIL/uL (4.00-5.50); RED CELL DISTRIBUTION WIDTH 17.5 % (11.0-15.5); WHITE BLOOD COUNT (AUTO) 12.2 K/uL (4.8-10.8)
[2022-10-06 07:35] LABS: ALBUMIN 1.5 g/dL (3.5-5.0); CREATININE 1.2 mg/dL (0.5-1.5); POTASSIUM 3.7 mmol/L (3.5-5.1); TOTAL PROTEIN, SERUM 5.9 g/dL (6.0-8.3)
[2022-10-06] MEDS: NITROGLYCERIN 1GM OINT 1 INCH/1GM TD SCH ×2 (08:00→15:48)
[2022-10-06] MEDS: HYDRALAZINE HCL 10 MG TABLET PO SCH ×3 (09:00→20:18)
[2022-10-06] MEDS: ASPIRIN 81MG CHEW TAB PO SCH (09:00)
[2022-10-06] MEDS: METOPROLOL TARTRATE 25 MG TAB PO SCH ×2 (13:44→20:18)
[2022-10-06] MEDS: ISOSORBIDE MONO 30MG SR TAB PO SCH (13:44)
[2022-10-06] MEDS: FAMOTIDINE 20MG TAB PO SCH ×2 (13:45→20:18)
[2022-10-06] MEDS: HYDROXYCHLOROQUINE SULFATE 200 MG TAB PO SCH ×2 (13:45→20:18)
[2022-10-06] MEDS: NIFEDIPINE ER 30 MG TAB PO SCH (13:45)
[2022-10-06] MEDS: LOSARTAN 50 MG TABLET PO SCH ×2 (13:45→20:18)
[2022-10-06] MEDS: EPOETIN ALFA-EPBX (NON-ESRD) 10,000 UNIT/ML VIAL SQ SCH (20:17)
[2022-10-07] VITALS: BP 121/69
[2022-10-07] MEDS: NITROGLYCERIN 1GM OINT 1 INCH/1GM TD SCH ×2 (00:12→09:02)
[2022-10-07 04:00] VITALS: BP 126/67
[2022-10-07 06:24] LABS: HEMATOCRIT 26.1 % (36-48); MEAN CORPUSCULAR HEMOGLOBIN 27.9 pg (27.0-33.0); MEAN CORPUSCULAR HGB CONC 32.2 g/dL (32.0-36.0); MEAN CORPUSCULAR VOLUME 86.7 fL (79-99); NUCLEATED RED BLOOD CELLS 0.2 % (0.0-0.19); PLATELET COUNT (AUTO) 570 K/uL (130-400); RED BLOOD CELL COUNT(AUTO) 3.01 MIL/uL (4.00-5.50); RED CELL DISTRIBUTION WIDTH 18.2 % (11.0-15.5)
[2022-10-07 06:45] LABS: ALBUMIN 1.3 g/dL (3.5-5.0); CREATININE 1.2 mg/dL (0.5-1.5); MAGNESIUM 1.8 mg/dL (1.80-2.40); PHOSPHORUS 5.8 mg/dL (2.5-4.9); POTASSIUM 3.7 mmol/L (3.5-5.1); TOTAL PROTEIN, SERUM 5.8 g/dL (6.0-8.3)
[2022-10-07 08:00] VITALS: BP 148/85
[2022-10-07] MEDS: LOSARTAN 50 MG TABLET PO SCH (08:49)
[2022-10-07] MEDS: ISOSORBIDE MONO 30MG SR TAB PO SCH (08:50)
[2022-10-07] MEDS: HYDRALAZINE HCL 10 MG TABLET PO SCH ×2 (08:50→14:04)
[2022-10-07] MEDS: HYDROXYCHLOROQUINE SULFATE 200 MG TAB PO SCH (08:50)
[2022-10-07] MEDS: METOPROLOL TARTRATE 25 MG TAB PO SCH (08:51)
[2022-10-07] MEDS: NIFEDIPINE ER 30 MG TAB PO SCH (08:51)
[2022-10-07] MEDS: FAMOTIDINE 20MG TAB PO SCH (08:51)
[2022-10-07] MEDS: ACETAMINOPHEN 325 MG TAB PO PRN (09:01)
[2022-10-07 12:00] VITALS: BP 146/88
[2022-10-07] MEDS ORDERED: HYDR-3420 PO (14:49)
[2022-10-07] MEDS ORDERED: METO25 PO (14:49)
[2022-10-07] MEDS ORDERED: NIFE-40 PO (14:49)
[2022-10-07] MEDS ORDERED: ASPI-1005 PO (14:49)
[2022-10-07] MEDS ORDERED: ISOS30TA92 PO (14:49)
== END 2022-10-07 18:40 | disposition home or self-care (01) | DRG 305 ==
LOC: EDH 11:35 → EDHIP 11:36 → 2AH 16:20 → 3BH 10-03 13:35
PROVIDERS: ADMIT Internal Medicine; ATTEND Internal Medicine
PROC: 0TB03ZX Excision of Right Kidney, Percutaneous Approach, Diagnostic (ICD-10-PCS; principal; 2022-10-06)
DX: I16.1 Hypertensive emergency (principal); M32.14 Glomerular disease in systemic lupus erythematosus; D64.9 Anemia, unspecified; Z90.81 Acquired absence of spleen; D72.829 Elevated white blood cell count, unspecified; Z68.32 Body mass index [BMI] 32.0-32.9, adult; E66.09 Other obesity due to excess calories; I10 Essential (primary) hypertension; Z87.891 Personal history of nicotine dependence
CPT/HCPCS: 36415; 50200; 76942; 80048; 80053; 80305; 81001; 81025; 82550; 82570; 82607; 82728; 82746; 82948; 83540; 83550; 83735; 83874; 84100; 84145; 84156; 84443; 84484; 85025; 85027; 85045; 85610; 85651; 85730; 86038; 86140; 86160; 86215; 86235; 86255; 87088; 93005; 93306; 93356; A4344; G0378; J0360; J0696; J1170; J1650; J1756; J2930; J3475; J7040

== ENCOUNTER 2022-10-08 14:46 | Inpatient (IN) | payer OTHER ==
[~2022-10-08] VITALS: Ht 154.9 cm; Wt 81.3 kg
[~2022-10-08 14:46] MED LIST changes: +ASPI-1005 PO; +HYDR-3420 PO; +HYDR200T4 PO; +ISOS30TA92 PO; +LOSA50TA64 PO; +METO25 PO; +NIFE-40 PO
[2022-10-08 15:10] VITALS: BP 145/78
[2022-10-08] MEDS ORDERED: DIPHENHYDRAMINE HCL 25 MG CAPSULE PO PRN (16:30)
[2022-10-08] MEDS ORDERED: GUAIFENESIN-DM 200/20 MG 10 ML PO PRN (16:30)
[2022-10-08] MEDS ORDERED: POTASSIUM CHLORIDE 10% ELIXIR 20 MEQ/15 ML UDCUP PO PRN (16:30)
[2022-10-08] MEDS ORDERED: HYDROCODONE/ACETAMINOPHEN 5/325 MG TAB PO PRN ×2 (16:30)
[2022-10-08] MEDS ORDERED: HYDROMORPHONE 1 MG INJ IV PRN (16:30)
[2022-10-08] MEDS ORDERED: ACETAMINOPHEN 325 MG TAB PO PRN ×2 (16:30)
[2022-10-08] MEDS ORDERED: KCL 20 MEQ ERTAB PO PRN (16:30)
[2022-10-08] MEDS ORDERED: NITROGLYCERIN 0.4 MG SL TAB SL PRN (16:30)
[2022-10-08] MEDS ORDERED: DiphenhydrAMINE HCL 50 MG/ML VIAL IV PRN (16:30)
[2022-10-08] MEDS ORDERED: LACTULOSE 20 GM/30 ML UDCUP PO PRN (16:30)
[2022-10-08] MEDS ORDERED: ONDANSETRON 4MG INJ IV PRN (16:30)
[2022-10-08] MEDS ORDERED: MAG/ALUM/SIMETH 30 ML UDCUP PO PRN (16:30)
[2022-10-08] MEDS ORDERED: POTASSIUM CHLORIDE 20MEQ/100ML 100 ML IV PRN (16:30)
[2022-10-08] MEDS ORDERED: LIDOCAINE HCL-MPF 1% 2ML VIAL IV PRN (16:30)
[2022-10-08] MEDS ORDERED: MAGNESIUM 2GM PREMIX 50ML 50 ML IV PRN (16:30)
[2022-10-08] MEDS: 0.9%NACL 1000ML 1,000 ML IV SCH ×2 (17:00→18:27)
[2022-10-08] MEDS: SOLU-MEDROL 40MG VIAL IVP SCH ×2 (18:27→22:14)
[2022-10-08 20:27] VITALS: BP 152/85
[2022-10-08] MEDS: METOPROLOL TARTRATE 25 MG TAB PO SCH (22:14)
[2022-10-08] MEDS: HYDROXYCHLOROQUINE SULFATE 200 MG TAB PO SCH (22:14)
[2022-10-08] MEDS: FAMOTIDINE 20MG VIAL IV SCH (22:14)
[2022-10-08] MEDS: FAMOTIDINE 20MG TAB PO SCH (22:14)
[2022-10-08] MEDS: HYDRALAZINE HCL 10 MG TABLET PO SCH (22:16)
[2022-10-08 23:07] VITALS: BP 126/80
[2022-10-09] MEDS: 0.9%NACL 1000ML 1,000 ML IV SCH ×6 (00:50→17:30)
[2022-10-09 02:33] LABS: HEPATITIS B SURFACE ANTIGEN Non-Reactive (Nonreactive); HEPATITIS C ANTIBODY Non-Reactive (Nonreactive)
[2022-10-09 03:54] VITALS: BP 152/90
[2022-10-09 05:48] LABS: BASOPHILS % (AUTO) 0.2 % (0.0-5.0); HEMATOCRIT 24.5 % (36-48); LYMPHOCYTES % (AUTO) 4.5 % (21.0-51.0); MEAN CORPUSCULAR HEMOGLOBIN 27.1 pg (27.0-33.0); MEAN CORPUSCULAR HGB CONC 30.6 g/dL (32.0-36.0); MEAN CORPUSCULAR VOLUME 88.4 fL (79-99); MONOCYTES % (AUTO) 0.7 % (3.0-13.0); NEUTROPHILS % (AUTO) 93.8 % (40.0-77.0); NUCLEATED RED BLOOD CELLS 0.1 % (0.0-0.19); PLATELET COUNT (AUTO) 381 K/uL (130-400); RED BLOOD CELL COUNT(AUTO) 2.77 MIL/uL (4.00-5.50); RED CELL DISTRIBUTION WIDTH 18.1 % (11.0-15.5); WHITE BLOOD COUNT (AUTO) 20.4 K/uL (4.8-10.8)
[2022-10-09 06:00] LABS: INR 0.97 (0.85-1.15); PROTHROMBIN TIME 10.6 SEC (9.6-11.6)
[2022-10-09 06:01] LABS: PARTIAL THROMBOPLASTIN TIME 26.8 SEC (26.3-35.5)
[2022-10-09 06:09] LABS: ALBUMIN 1.3 g/dL (3.5-5.0); CREATININE 1.5 mg/dL (0.5-1.5); CRP QUANTITATIVE 222.1 mg/L (0.00-9.0); MAGNESIUM 1.8 mg/dL (1.80-2.40); PHOSPHORUS 7.6 mg/dL (2.5-4.9); POTASSIUM 4.3 mmol/L (3.5-5.1); T4 (THYROXINE) 6.5 ug/dL (4.7-13.3); TOTAL PROTEIN, SERUM 6.1 g/dL (6.0-8.3)
[2022-10-09 07:39] LABS: ERYTHROCYTE SEDIMENTATION RATE 133 MM/HR (0-20)
[2022-10-09 08:00] VITALS: BP 147/99
[2022-10-09] MEDS: FAMOTIDINE 20MG VIAL IV SCH ×3 (09:00→21:16)
[2022-10-09] MEDS: ASPIRIN 81MG CHEW TAB PO SCH (09:32)
[2022-10-09] MEDS: METOPROLOL TARTRATE 25 MG TAB PO SCH ×2 (09:32→21:16)
[2022-10-09] MEDS: HYDROXYCHLOROQUINE SULFATE 200 MG TAB PO SCH ×2 (09:32→21:16)
[2022-10-09] MEDS: NIFEDIPINE ER 30 MG TAB PO SCH (09:32)
[2022-10-09] MEDS: ISOSORBIDE MONO 30MG SR TAB PO SCH (09:33)
[2022-10-09] MEDS: FAMOTIDINE 20MG TAB PO SCH ×2 (09:33→21:00)
[2022-10-09] MEDS: SOLU-MEDROL 40MG VIAL IVP SCH (09:33)
[2022-10-09] MEDS: HYDRALAZINE HCL 10 MG TABLET PO SCH ×3 (09:33→21:16)
[2022-10-09] MEDS: LOSARTAN 50 MG TABLET PO SCH (09:33)
[2022-10-09] MEDS: ENOXAPARIN SODIUM 30 MG/0.3 ML SQ SCH (09:34)
[2022-10-09 12:00] VITALS: BP 161/91
[2022-10-09] MEDS ORDERED: PHARMACY COMMUNICATION MISC SCH (12:30)
[2022-10-09] MEDS: SOLU-MEDROL 125MG VIAL IVP SCH ×3 (13:26→23:37)
[2022-10-09 16:00] VITALS: BP 138/76
[2022-10-09 16:18] LABS: APPEARANCE,URINE TURBID (CLEAR); BILIRUBIN,URINE NEGATIVE (NEGATIVE); COLOR,URINE YELLOW (YELLOW); GLUCOSE, URINE (UA) NEGATIVE (NEGATIVE); KETONES,URINE NEGATIVE (NEGATIVE); LEUKOCYTE ESTERASE ,URINE 250 Leu/uL (NEGATIVE); NITRATE,URINE NEGATIVE (NEGATIVE); OCCULT BLOOD,URINE LARGE (NEGATIVE); PROTEIN,URINE 600 mg/dL (NEGATIVE); UROBILINOGEN,URINE 0.2 mg/dL (0.2-1.0)
[2022-10-09 16:56] LABS: BACTERIA,URINE MANY /HPF (None Seen); HYALINE CASTS, URINE 51-100 /LPF (0-1 /LPF); MUCUS,URINE FEW LPF (None Seen); RBC,URINE TNTC /HPF (0-1); SQUAMOUS EPITHELIAL CELL,UR MANY /HPF (0-2); WBC,URINE TNTC /HPF (0-1); YEAST,URINE BUDDING MANY /HPF (None Seen)
[2022-10-09 17:06] LABS: PROTEIN,URINE RANDOM 772.5 mg/dL (0-11.9)
[2022-10-09 20:00] VITALS: BP 145/88
[2022-10-09] MEDS: MYCOPHENOLATE MOFETIL 250 MG CAPSULE PO SCH (21:16)
[2022-10-10] VITALS (7 sets, daily range): BP systolic 121–152; BP diastolic 74–96
[2022-10-10] MEDS: 0.9%NACL 1000ML 1,000 ML IV SCH ×4 (00:14→20:33)
[2022-10-10 05:12] LABS: HEPATITIS A ANTIBODY TOTAL Positive (Negative)
[2022-10-10] MEDS: SOLU-MEDROL 125MG VIAL IVP SCH ×4 (05:22→23:58)
[2022-10-10 05:51] LABS: MEAN CORPUSCULAR HEMOGLOBIN 27.3 pg (27.0-33.0); MEAN CORPUSCULAR HGB CONC 30.8 g/dL (32.0-36.0); MEAN CORPUSCULAR VOLUME 88.6 fL (79-99); NUCLEATED RED BLOOD CELLS 0.4 % (0.0-0.19); PLATELET COUNT (AUTO) 421 K/uL (130-400); RED BLOOD CELL COUNT(AUTO) 2.71 MIL/uL (4.00-5.50); RED CELL DISTRIBUTION WIDTH 18.3 % (11.0-15.5)
[2022-10-10 05:54] LABS: LYMPHOCYTES % (MANUAL) 10 % (22-44); MAN.DIFF COMMENT-IMPRESSION MANUAL DIFFERENTIAL; MONOCYTES % (MANUAL) 3 % (2-9); PLATELET MORPHOLOGY COMMENT ADEQUATE; SEGMENTED NEUTROPHILS % 87 % (40-70)
[2022-10-10 06:10] LABS: ALBUMIN 1.4 g/dL (3.5-5.0); CREATININE 1.7 mg/dL (0.5-1.5); MAGNESIUM 2.5 mg/dL (1.80-2.40); PHOSPHORUS 7.1 mg/dL (2.5-4.9); POTASSIUM 4.3 mmol/L (3.5-5.1); TOTAL PROTEIN, SERUM 6.1 g/dL (6.0-8.3)
[2022-10-10] MEDS: FAMOTIDINE 20MG VIAL IV SCH (08:08)
[2022-10-10] MEDS: FAMOTIDINE 20MG TAB PO SCH (08:14)
[2022-10-10] MEDS: ENOXAPARIN SODIUM 30 MG/0.3 ML SQ SCH ×2 (08:15→09:55)
[2022-10-10] MEDS: VITAMIN D 5000 UNIT PO SCH (09:00)
[2022-10-10] MEDS: PANTOPRAZOLE 40 MG/VIAL IVP SCH (09:53)
[2022-10-10] MEDS: Vitamin B Complex/Vit C/Folic Acid PO SCH (09:53)
[2022-10-10] MEDS: ISOSORBIDE MONO 30MG SR TAB PO SCH (09:54)
[2022-10-10] MEDS: NIFEDIPINE ER 30 MG TAB PO SCH (09:54)
[2022-10-10] MEDS: HYDROXYCHLOROQUINE SULFATE 200 MG TAB PO SCH ×2 (09:54→20:54)
[2022-10-10] MEDS: MYCOPHENOLATE MOFETIL 250 MG CAPSULE PO SCH ×2 (09:54→20:54)
[2022-10-10] MEDS: HYDRALAZINE HCL 10 MG TABLET PO SCH ×3 (09:55→23:56)
[2022-10-10] MEDS: METOPROLOL TARTRATE 25 MG TAB PO SCH ×2 (09:55→20:54)
[2022-10-10] MEDS: ASPIRIN 81MG CHEW TAB PO SCH (09:55)
[2022-10-10] MEDS: LOSARTAN 50 MG TABLET PO SCH (09:55)
[2022-10-11] MEDS: 0.9%NACL 1000ML 1,000 ML IV SCH ×3 (03:05→17:01)
[2022-10-11 03:35] VITALS: BP 130/82
[2022-10-11 04:23] LABS: BASOPHILS % (AUTO) 0.1 % (0.0-5.0); HEMATOCRIT 25.5 % (36-48); LYMPHOCYTES % (AUTO) 5.2 % (21.0-51.0); MEAN CORPUSCULAR HEMOGLOBIN 27.7 pg (27.0-33.0); MEAN CORPUSCULAR HGB CONC 31.4 g/dL (32.0-36.0); MEAN CORPUSCULAR VOLUME 88.2 fL (79-99); MONOCYTES % (AUTO) 3.7 % (3.0-13.0); NEUTROPHILS % (AUTO) 90.1 % (40.0-77.0); NUCLEATED RED BLOOD CELLS 2.5 % (0.0-0.19); PLATELET COUNT (AUTO) 483 K/uL (130-400); RED BLOOD CELL COUNT(AUTO) 2.89 MIL/uL (4.00-5.50); RED CELL DISTRIBUTION WIDTH 18.8 % (11.0-15.5); WHITE BLOOD COUNT (AUTO) 16.2 K/uL (4.8-10.8)
[2022-10-11 04:49] LABS: CREATININE 1.6 mg/dL (0.5-1.5); POTASSIUM 3.2 mmol/L (3.5-5.1)
[2022-10-11] MEDS: SOLU-MEDROL 125MG VIAL IVP SCH ×3 (05:53→18:27)
[2022-10-11 08:00] VITALS: BP 133/86
[2022-10-11] MEDS: METOPROLOL TARTRATE 25 MG TAB PO SCH ×2 (08:55→20:33)
[2022-10-11] MEDS: Vitamin B Complex/Vit C/Folic Acid PO SCH (08:55)
[2022-10-11] MEDS: PANTOPRAZOLE 40 MG/VIAL IVP SCH (08:55)
[2022-10-11] MEDS: NIFEDIPINE ER 30 MG TAB PO SCH (08:55)
[2022-10-11] MEDS: ASPIRIN 81MG CHEW TAB PO SCH (08:56)
[2022-10-11] MEDS: MYCOPHENOLATE MOFETIL 250 MG CAPSULE PO SCH ×2 (08:56→20:33)
[2022-10-11] MEDS: HYDROXYCHLOROQUINE SULFATE 200 MG TAB PO SCH ×2 (08:56→20:34)
[2022-10-11] MEDS: HYDRALAZINE HCL 10 MG TABLET PO SCH ×3 (08:56→20:36)
[2022-10-11] MEDS: ENOXAPARIN SODIUM 30 MG/0.3 ML SQ SCH (08:57)
[2022-10-11] MEDS: LOSARTAN 50 MG TABLET PO SCH (08:57)
[2022-10-11] MEDS: VITAMIN D 5000 UNIT PO SCH (08:57)
[2022-10-11] MEDS: ISOSORBIDE MONO 30MG SR TAB PO SCH (08:57)
[2022-10-11] MEDS ORDERED: KCL 20 MEQ ERTAB PO ONE (11:30)
[2022-10-11 11:56] VITALS: BP 142/90
[2022-10-11 16:00] VITALS: BP 134/87
[2022-10-11 20:00] VITALS: BP 134/86
[2022-10-12] VITALS (7 sets, daily range): BP systolic 127–159; BP diastolic 85–95
[2022-10-12] MEDS: 0.9%NACL 1000ML 1,000 ML IV SCH ×3 (01:00→17:00)
[2022-10-12] MEDS: SOLU-MEDROL 125MG VIAL IVP SCH ×3 (05:55→11:58)
[2022-10-12] MEDS: ENOXAPARIN SODIUM 30 MG/0.3 ML SQ SCH (09:00)
[2022-10-12] MEDS: HYDRALAZINE HCL 10 MG TABLET PO SCH ×3 (09:00→20:28)
[2022-10-12] MEDS: LOSARTAN 50 MG TABLET PO SCH (09:00)
[2022-10-12] MEDS: NIFEDIPINE ER 30 MG TAB PO SCH (09:00)
[2022-10-12] MEDS: ASPIRIN 81MG CHEW TAB PO SCH (09:00)
[2022-10-12] MEDS: Vitamin B Complex/Vit C/Folic Acid PO SCH (09:00)
[2022-10-12] MEDS: HYDROXYCHLOROQUINE SULFATE 200 MG TAB PO SCH ×2 (09:00→20:28)
[2022-10-12] MEDS: PANTOPRAZOLE 40 MG/VIAL IVP SCH (09:00)
[2022-10-12] MEDS: MYCOPHENOLATE MOFETIL 250 MG CAPSULE PO SCH ×2 (09:00→20:28)
[2022-10-12] MEDS: ISOSORBIDE MONO 30MG SR TAB PO SCH (09:00)
[2022-10-12] MEDS: VITAMIN D 5000 UNIT PO SCH (09:00)
[2022-10-12] MEDS: METOPROLOL TARTRATE 25 MG TAB PO SCH ×2 (10:42→21:22)
[2022-10-12] MEDS: SODIUM BICARBONATE 650 MG TAB PO SCH ×2 (14:39→20:28)
[2022-10-13 04:06] LABS: BASOPHILS % (AUTO) 0.1 % (0.0-5.0); HEMATOCRIT 24.7 % (36-48); LYMPHOCYTES % (AUTO) 9.9 % (21.0-51.0); MEAN CORPUSCULAR HEMOGLOBIN 27.6 pg (27.0-33.0); MEAN CORPUSCULAR HGB CONC 30.4 g/dL (32.0-36.0); MEAN CORPUSCULAR VOLUME 90.8 fL (79-99); MONOCYTES % (AUTO) 9.8 % (3.0-13.0); NEUTROPHILS % (AUTO) 79.1 % (40.0-77.0); NUCLEATED RED BLOOD CELLS 1.8 % (0.0-0.19); PLATELET COUNT (AUTO) 469 K/uL (130-400); RED BLOOD CELL COUNT(AUTO) 2.72 MIL/uL (4.00-5.50); WHITE BLOOD COUNT (AUTO) 14.1 K/uL (4.8-10.8)
[2022-10-13 04:33] LABS: CREATININE 1.4 mg/dL (0.5-1.5); PHOSPHORUS 4.8 mg/dL (2.5-4.9); POTASSIUM 4.2 mmol/L (3.5-5.1)
[2022-10-13 04:35] VITALS: BP 153/94
[2022-10-13 08:00] VITALS: BP 166/95
[2022-10-13] MEDS: HYDROXYCHLOROQUINE SULFATE 200 MG TAB PO SCH (09:00)
[2022-10-13] MEDS: VITAMIN D 5000 UNIT PO SCH (09:00)
[2022-10-13] MEDS: 0.9%NACL 1000ML 1,000 ML IV SCH ×2 (09:00→11:22)
[2022-10-13] MEDS: ISOSORBIDE MONO 30MG SR TAB PO SCH (09:00)
[2022-10-13] MEDS: ENOXAPARIN SODIUM 30 MG/0.3 ML SQ SCH (09:00)
[2022-10-13] MEDS: ASPIRIN 81MG CHEW TAB PO SCH (09:00)
[2022-10-13] MEDS: Vitamin B Complex/Vit C/Folic Acid PO SCH (09:00)
[2022-10-13] MEDS: MYCOPHENOLATE MOFETIL 250 MG CAPSULE PO SCH (09:00)
[2022-10-13] MEDS: PANTOPRAZOLE 40 MG/VIAL IVP SCH (11:00)
[2022-10-13] MEDS: SODIUM BICARBONATE 650 MG TAB PO SCH (11:08)
[2022-10-13] MEDS: METOPROLOL TARTRATE 25 MG TAB PO SCH (11:14)
[2022-10-13] MEDS: LOSARTAN 50 MG TABLET PO SCH (11:16)
[2022-10-13] MEDS: HYDRALAZINE HCL 10 MG TABLET PO SCH (11:17)
[2022-10-13] MEDS: NIFEDIPINE ER 30 MG TAB PO SCH (11:18)
[2022-10-13 11:43] VITALS: BP 160/92
[2022-10-13] MEDS ORDERED: SODI650T PO (13:25)
[2022-10-13] MEDS ORDERED: NIFE90TA65 PO (13:25)
[2022-10-13] MEDS ORDERED: MYCO250C36 PO (13:25)
[2022-10-13] MEDS ORDERED: PRED20B PO (13:25)
[2022-10-13] MEDS ORDERED: PREDNISONE 20 MG TABLET PO SCH (14:00)
== END 2022-10-13 14:10 | disposition home or self-care (01) | DRG 546 ==
LOC: EDH 14:46 → 3CH 14:47
PROVIDERS: ADMIT Internal Medicine; ATTEND Internal Medicine
DX: M32.14 Glomerular disease in systemic lupus erythematosus (principal); N39.0 Urinary tract infection, site not specified; I10 Essential (primary) hypertension; Z79.624 Long term (current) use of inhibitors of nucleotide synthesis
CPT/HCPCS: 36415; 80048; 80053; 81001; 82570; 82728; 83540; 83550; 83735; 84100; 84145; 84156; 84436; 84480; 85025; 85610; 85651; 85730; 86140; 86480; 86704; 86706; 86708; 87340; 87520; C9113; G0378; J1170; J1650; J2405; J2920; J2930; J3475; J3480; J3490; J7517

== ENCOUNTER 2022-10-30 21:25 | Emergency (ER) | payer OTHER ==
[~2022-10-30] VITALS: Ht 167.6 cm; Wt 104.3 kg
[~2022-10-30 21:25] MED LIST changes: +MYCO250C36 PO; -NIFE-40 PO; +NIFE90TA65 PO; -PRED10TA3 PO; +PRED20B PO; +SODI650T PO
[2022-10-30] MEDS ORDERED: 0.9%NACL 1000ML 1,000 ML IV ONE (22:30)
[2022-10-30 22:49] LABS: BASOPHILS % (AUTO) 0.1 % (0.0-5.0); HEMATOCRIT 34.3 % (36-48); LYMPHOCYTES % (AUTO) 1.2 % (21.0-51.0); MEAN CORPUSCULAR HEMOGLOBIN 27.5 pg (27.0-33.0); MEAN CORPUSCULAR HGB CONC 30.6 g/dL (32.0-36.0); MEAN CORPUSCULAR VOLUME 89.8 fL (79-99); MONOCYTES % (AUTO) 4.3 % (3.0-13.0); NEUTROPHILS % (AUTO) 93.4 % (40.0-77.0); NUCLEATED RED BLOOD CELLS 0.1 % (0.0-0.19); PLATELET COUNT (AUTO) 316 K/uL (130-400); RED BLOOD CELL COUNT(AUTO) 3.82 MIL/uL (4.00-5.50); RED CELL DISTRIBUTION WIDTH 18.8 % (11.0-15.5); WHITE BLOOD COUNT (AUTO) 23.5 K/uL (4.8-10.8)
[2022-10-30 23:04] LABS: CARBON DIOXIDE 19 mmol/L (21-32); CHLORIDE 108 mmol/L (101-111); CREATININE 1.1 mg/dL (0.5-1.5); GLOMERULAR FILTR. RATE CALC 67 mL/min (>90); GLUCOSE,RANDOM 81 mg/dL (70-105); POTASSIUM 4.7 mmol/L (3.5-5.1); SODIUM SERUM 138 mmol/L (136-145); UREA NITROGEN, BLOOD 51 mg/dL (7-18)
[2022-10-30 23:13] LABS: ALANINE AMINOTRANSFERASE 16 U/L (12-78); ALBUMIN 1.8 g/dL (3.5-5.0); ASPARTATE AMINOTRANSFERASE 16 U/L (10-37); CREATINE KINASE, TOTAL 21 U/L (21-232); TOTAL PROTEIN, SERUM 5.3 g/dL (6.0-8.3)
[2022-10-30 23:14] LABS: SALICYLATE < 2.8 mg/dL (2.8-20.0)
[2022-10-30 23:15] LABS: ACETAMINOPHEN < 1 mcg/mL (10-30)
[2022-10-30 23:26] LABS: APPEARANCE,URINE CLEAR (CLEAR); BILIRUBIN,URINE NEGATIVE (NEGATIVE); COLOR,URINE LIGHT-YELLOW (YELLOW); GLUCOSE, URINE (UA) NEGATIVE (NEGATIVE); KETONES,URINE NEGATIVE (NEGATIVE); LEUKOCYTE ESTERASE ,URINE 75 Leu/uL (NEGATIVE); NITRATE,URINE NEGATIVE (NEGATIVE); OCCULT BLOOD,URINE LARGE (NEGATIVE); PROTEIN,URINE 600 mg/dL (NEGATIVE); UROBILINOGEN,URINE 0.2 mg/dL (0.2-1.0)
[2022-10-30 23:29] LABS: BACTERIA,URINE FEW /HPF (None Seen); MUCUS,URINE RARE LPF (None Seen); RBC,URINE 26-50 /HPF (0-1); WBC,URINE 26-50 /HPF (0-1)
[2022-10-30 23:33] LABS: AMPHET/METH SCREEN,URINE NEGATIVE (NEGATIVE); BARBITURATE SCREEN, URINE NEGATIVE (NEGATIVE); BENZODIAZEPINES SCREEN,URINE NEGATIVE (NEGATIVE); CANNABINOID SCREEN,URINE POSITIVE (NEGATIVE); COCAINE SCREEN,URINE NEGATIVE (NEGATIVE); OPIATE SCREEN,URINE NEGATIVE (NEGATIVE); PHENCYCLIDINE SCREEN,URINE NEGATIVE (NEGATIVE)
[2022-10-31] MEDS ORDERED: 0.9%NACL 1000ML 2,000 ML IV ONE (01:30)
[2022-10-31] MEDS ORDERED: CEFTRIAXONE 1G VIAL 2 GM in 0.9%NACL 100ML 100 ML IV ONE (01:30)
[2022-10-31] MEDS ORDERED: [UNRECOGNIZED DRUG - OTHER] IV ONE (01:30)
[2022-10-31] MEDS ORDERED: CEFEPIME IV ONE (01:30)
[2022-10-31] MEDS ORDERED: ZOSYN 3.375GM +NS 50ML IVPB ONE (01:30)
[2022-10-31] MEDS ORDERED: VANCOMYCIN 1G/250ML KIT 250 ML IV ONE (01:30)
[2022-10-31 01:33] LABS: INR 0.93 (0.85-1.15); PROTHROMBIN TIME 9.3 SEC (9.6-11.6)
[2022-10-31] MEDS ORDERED: CEFEPIME HCL 2 GM VIAL ONE (01:57)
[2022-10-31 02:30] VITALS: BP 147/97
== END 2022-10-31 04:28 | disposition short-term general hospital (02) ==
LOC: EDH 21:25
DX: R56.9 Unspecified convulsions (principal); I10 Essential (primary) hypertension; E78.00 Pure hypercholesterolemia, unspecified; M19.90 Unspecified osteoarthritis, unspecified site; F17.200 Nicotine dependence, unspecified, uncomplicated; Z79.82 Long term (current) use of aspirin; Z79.899 Other long term (current) drug therapy; Z98.890 Other specified postprocedural states
CPT/HCPCS: 99291; 70450; 71045; 87635; 82550; 84484; 80053; 80305; 85025; 85610; 85730; 87040 ×2; 87088; 83605; 84146; 36415; 99292; 51702; 93005; 81001; 96365; 96366; 96368; G0481; C9803; J2543; J3370; J0692

== ENCOUNTER 2023-08-04 08:09 | Emergency (ER) | payer BC, OTHER ==
[~2023-08-04] VITALS: Ht 154.9 cm; Wt 72.6 kg
[~2023-08-04 08:09] MED LIST changes: -HYDR200T4 PO; +HYDR200T75 PO
[2023-08-04 08:51] LABS: SARS-CoV-2, RNA, NAAT NEGATIVE SARS CoV-2 (NEGATIVE)
[2023-08-04 08:56] LABS: INFLUENZA TYPE A Negative For Type A (NEGATIVE); INFLUENZA TYPE B Negative For Type B (NEGATIVE)
[2023-08-04] MEDS ORDERED: ASPIRIN 325MG TAB PO ONE (09:00)
[2023-08-04] MEDS ORDERED: METOCLOPRAMIDE 10 MG/2 ML VIAL IVP ONE (09:00)
[2023-08-04] MEDS ORDERED: LABETALOL 20MG VIAL IV ONE (09:00)
[2023-08-04] MEDS ORDERED: MORPHINE 4 MG SYG IVP ONE (09:00)
[2023-08-04] MEDS ORDERED: DEXAMETHASONE SOD PHOSPHATE 4 MG/ML 1ML VIAL IV ONE (09:00)
[2023-08-04 09:08] LABS: HCG,QUALITATIVE URINE NEGATIVE (NEGATIVE)
[2023-08-04 09:09] LABS: APPEARANCE,URINE CLOUDY (CLEAR); BILIRUBIN,URINE NEGATIVE (NEGATIVE); COLOR,URINE LIGHT-YELLOW (YELLOW); GLUCOSE, URINE (UA) NEGATIVE (NEGATIVE); KETONES,URINE NEGATIVE (NEGATIVE); LEUKOCYTE ESTERASE ,URINE 25 Leu/uL (NEGATIVE); NITRATE,URINE NEGATIVE (NEGATIVE); OCCULT BLOOD,URINE MODERATE (NEGATIVE); PH,URINE 5.5 (5.0-8.0); PROTEIN,URINE 200 mg/dL (NEGATIVE); UROBILINOGEN,URINE 0.2 mg/dL (0.2-1.0)
[2023-08-04 09:10] LABS: ADD UA MICROSCOPIC YES
[2023-08-04 09:12] LABS: BASOPHILS # (AUTO) 0.03 K/uL (0.00-0.20); BASOPHILS % (AUTO) 0.2 % (0.0-5.0); EOSINOPHILS # (AUTO) 0.02 K/uL (0.00-0.70); EOSINOPHILS % (AUTO) 0.2 % (0.0-8.0); HEMATOCRIT 32.1 % (36-48); IMMATURE GRANULOCYTE ABSOLUTE 0.06 K/uL (0-1); LYMPHOCYTES # (AUTO) 1.8 K/uL (1.0-4.8); LYMPHOCYTES % (AUTO) 14.2 % (21.0-51.0); MEAN CORPUSCULAR HEMOGLOBIN 28.5 pg (27.0-33.0); MEAN CORPUSCULAR VOLUME 86.3 fL (79-99); MONOCYTES # (AUTO) 1.7 K/uL (0.1-1.0); MONOCYTES % (AUTO) 13.3 % (3.0-13.0); NEUTROPHILS # (AUTO) 9.2 K/uL (1.8-7.7); NEUTROPHILS % (AUTO) 71.6 % (40.0-77.0); PLATELET COUNT (AUTO) 265 K/uL (130-400); RED BLOOD CELL COUNT(AUTO) 3.72 MIL/uL (4.00-5.50); RED CELL DISTRIBUTION WIDTH 13.9 % (11.0-15.5); WHITE BLOOD COUNT (AUTO) 12.8 K/uL (4.8-10.8)
[2023-08-04 09:13] LABS: BACTERIA,URINE RARE /HPF (None Seen); MUCUS,URINE RARE LPF (None Seen); SQUAMOUS EPITHELIAL CELL,UR FEW /HPF (0-2); WBC,URINE 26-50 /HPF (0-1)
[2023-08-04 09:28] LABS: POTASSIUM 4.7 mmol/L (3.5-5.1)
[2023-08-04 09:33] LABS: ALBUMIN 2.1 g/dL (3.5-5.0); BILIRUBIN,TOTAL 0.2 mg/dL (0.2-1.0); TOTAL PROTEIN, SERUM 6.6 g/dL (6.0-8.3)
[2023-08-04 10:09] VITALS: PULSE 84
[2023-08-04] MEDS ORDERED: NITROGLYCERIN 1GM OINT 1 INCH/1GM TD ONE (11:30)
[2023-08-04 12:22] VITALS: BP 135/73; PULSE 82; RESP 18; O2SAT 100
[2023-08-04] MEDS ORDERED: CEPH500B PO (12:55)
[2023-08-04] MEDS ORDERED: METH4TAB15 PO (12:55)
[2023-08-04] MEDS ORDERED: CEPHALEXIN 250 MG CAPSULE PO SCH (13:00)
== END 2023-08-04 13:11 | disposition home or self-care (01) ==
LOC: EDH 08:09
DX: R07.89 Other chest pain (principal); N39.0 Urinary tract infection, site not specified; M32.9 Systemic lupus erythematosus, unspecified; I10 Essential (primary) hypertension; E78.00 Pure hypercholesterolemia, unspecified; M19.90 Unspecified osteoarthritis, unspecified site; F17.200 Nicotine dependence, unspecified, uncomplicated; Z20.822 Contact with and (suspected) exposure to COVID-19; Z79.82 Long term (current) use of aspirin; Z79.899 Other long term (current) drug therapy; Z98.890 Other specified postprocedural states
CPT/HCPCS: 99284; 96374; 96375; 71045; 87635; 82550; 84484 ×2; 80053; 85025; 87088; 87804 ×2; 83605; 81001; 81025; 36415; 93005 ×2; J1100; J2270; J3490; J2765